=== PATIENT | female | born 1985 | race Caucasian/White ===

== ENCOUNTER 2016-03-17 22:14 | Emergency (ER) | payer OTHER ==
[~2016-03-17] VITALS: Ht 165.1 cm; Wt 80.0 kg
[2016-03-17 22:20] VITALS: BP 134/88; PULSE 106; RESP 18; TEMP 98.9; O2SAT 99
[2016-03-17] MEDS ORDERED: PERC5TAB12 PO (22:46)
[2016-03-17] MEDS ORDERED: METR500T10 PO (22:51)
[2016-03-17] MEDS ORDERED: CEPH-460 PO (22:51)
--- NOTE | 2016-03-17 22:52 | PD ---
HPI Chief Complaint: Skin Problem Time Seen by Provider: 22:30 Travel History International Travel<30 days: No Contact w/Intl Traveler<30days: No Traveled to known affect area: No History of Present Illness HPI Patient is a 30-year-old female presenting to for evaluation of a cyst to her gluteal fold. Patient states she's had a history of the same, a few months ago. She denies any fever, chills, change in bowel habits, rectal pain, abdominal pain. PFSH Past Medical History Medical History: Denies Significant Hx Tetanus Vaccination: > 5 Years Influenza Vaccination: No ?: Not Past Surgical History Surgical History: No Previous Surgery Social History Alcohol Use: Yes Tobacco Use: Yes Substance Use: No Allergies-Medications (Allergen,Severity, Reaction): Coded Allergies: No Known Allergies (Unverified , 03/17/16) Reported Meds & Prescriptions Reported Meds & Active Scripts Active No Active Prescriptions or Reported Medications Review of Systems Except as stated in HPI: all other systems reviewed are Neg Skin: Positive Lumps Physical Exam Narrative GENERAL: Well-nourished, well-developed patient. SKIN: Warm and dry. 1.5 cm abscess to the upper gluteal fold. No surrounding erythema or induration. Fluctuant HEAD: Normocephalic. EYES: No scleral icterus. No injection or drainage. NECK: Supple, trachea midline. No JVD or lymphadenopathy. CARDIOVASCULAR: Regular rate and rhythm without murmurs, gallops, or rubs. RESPIRATORY: Breath sounds equal bilaterally. No accessory muscle use. GASTROINTESTINAL: Abdomen soft, non-tender, nondistended. MUSCULOSKELETAL: No cyanosis, or edema. BACK: Nontender without obvious deformity. No CVA tenderness. Data Data Last Documented VS Vital Signs Date Time Temp Pulse Resp B/P Pulse Ox O2 Delivery O2 Flow Rate FiO2 03/17/16 22:20 98.9 106 18 134/88 99 [facility] Medical Decision Making Medical Screen Exam Complete: Yes Emergency Medical Condition: Yes Interpretation(s) Vital Signs Date Time Temp Pulse Resp B/P Pulse Ox O2 Delivery O2 Flow Rate FiO2 03/17/16 22:20 98.9 106 18 134/88 99 Differential Diagnosis Abscess versus pilonidal cyst versus cellulitis versus boil versus other Narrative Course Patient is a 30-year-old female presented him for evaluation of a pilonidal cyst. Patient has had the cyst flareup before. She has no other complaints at this time. Please see procedure poor for I&D. Patient be placed on metronidazole as well as Bactrim. She was given a short course of oral pain medications. Patient is on medication and is returning home on Tuesday. She was encouraged to follow-up with her primary doctor or return to emergency department for any new or worsening symptoms. She verbalized understanding of these instructions. Patient was educated on wound care. Patient is stable for discharge. Procedures Procedure Narrative After the risks and benefits were discussed the following procedure was performed: INCISION AND DRAINAGE OF ABSCESS: The area was prepped and was sterilely draped. A subcutaneous wheal of 1 % Xylocaine with a total number 1 mL was used to anesthetize the area. The area was properly anesthetized. A number 11 scalpel was used to make a 1 -cm incision across the area of the abscess. The abscess was drained an irrigated with normal saline. Diagnosis Primary Impression: Pilonidal abscess Referrals: Primary Care Physician Patient Instructions: Abscess (GEN), Abscess Incision and Drainage (DC), General Instructions, Pilonidal Cyst (ED) Additional Instructions: Follow-up with your primary doctor Return to emergency department for any new or worsening symptoms Take medications as directed Keep ulceration clean and dry, apply topical antibiotic ointment and cover with gauze dressing Med/Other Pt SpecificInfo: Prescription(s) given Scripts Cephalexin (Keflex)500 Mg [id number] Mg PO Q12H 10 Days Ref 0 Prov:Jeanette South 03/17/16 Metronidazole 500 Mg [id number] Mg PO TID 10 Days Ref 0 Prov:Jeanette South 03/17/16 Oxycodone-Acetaminophen (Percocet)5-325 mg Tab1 Tab PO Q6H PRN (PAIN) #12 TAB Ref 0 Prov:Danielito Garcia MD 03/17/16 Disposition: 01 DISCHARGE HOME Condition: Stable Jeanette South Mar 17, 2016 22:52
== END 2016-03-17 23:07 | disposition home or self-care (01) ==
LOC: PHEFT 22:14
DX: L05.01 Pilonidal cyst with abscess (principal); F10.10 Alcohol abuse, uncomplicated; Z72.0 Tobacco use
CPT/HCPCS: 10080